=== PATIENT | female | born 1995 | race Two or more races ===

== ENCOUNTER 2019-06-10 13:22 | Emergency (ER) | payer OTHER ==
[2019-06-10 13:33] VITALS: BP 121/54
--- NOTE | 2019-06-10 14:44 | ED Physician Documentation ---
History of Present Illness - Stated complaint Stated Complaint: SINUS PRESSURE/EAR PX - Chief complaint Chief Complaint: Heent - History obtained from History obtained from: Patient - History of Present Illness Timing: Today Pain level max: 8 Pain level now: 5 - Additonal information Additional information: Patient presents to the emergency department with 2 issues, the first is sinus congestion for the past 2 weeks. She states she had a right ear pain this morning as well. Nothing made it better or worse. The second is worms in her stool. She has been seen at the [facility], but not treated. Stool studies were ordered, but they do not yet know the results. No fevers. She is not , breast-feeding or trying to become . Review of Systems Constitutional: denies: Fever, Chills Respiratory: denies: Cough GI: denies: Abdominal Pain, Nausea, Vomiting, Diarrhea : denies: Now EGA Skin: denies: Rash Musculoskeletal: denies: Neck pain, Back pain Neurologic: denies: Focal weakness, Numbness, Headache PD PAST MEDICAL HISTORY - Past Medical History Past Medical History: No - Past Surgical History Past Surgical History: No - Present Medications Home Medications: Ambulatory Orders Medication Instructions Recorded Confirmed Albendazole 400 mg PO ONCE #4 tablet 06/10/19 Amox/Clav 875/125 [Augmentin] 1 each PO Q12H #20 tablet 06/10/19 - Allergies Allergies/Adverse Reactions: Allergies Allergy/AdvReac Type Severity Reaction Status Date / Time No Known Drug Allergies Allergy Verified 06/10/19 13:28 - Living Situation Living Situation: reports: With family Living Arrangement: reports: At home PD ED PE NORMAL - Vitals Vital signs reviewed: Yes - General General: Alert and oriented X 3, No acute distress, Well developed/nourished - HEENT HEENT: PERRL, Moist mucous membranes, Pharynx benign, Other (Right TM is erythematous, swollen, purulent fluid present. Left TM is normal) - Neck Neck: Supple, no meningeal sign - Cardiac Cardiac: RRR, Strong equal pulses - Respiratory Respiratory: No respiratory distress, Clear bilaterally - Abdomen Abdomen: Soft, Non tender, Non distended - Back Back: No CVA TTP - Derm Derm: Warm and dry, No rash - Extremities Extremities: No edema - Neuro Neuro: Alert and oriented X 3 - Psych Psych: Normal mood, Normal affect Results - Vitals Vitals: Vital Signs - 24 hr 06/10/19 13:28 Temperature 37 C Heart Rate 64 Respiratory 16 Rate Blood Pressure 121/54 L O2 Saturation 100 Oxygen O2 Source Room air PD MEDICAL DECISION MAKING - ED course Complexity details: considered differential, d/w patient ED course: Patient appears to have sinusitis with a right acute otitis media. Will place on Augmentin for this. She also appears to have pinworms, pictures were reviewed that were brought with the patient. Will treat with albendazole. Patient counseled regarding signs and symptoms for which I believe and urgent re-evaluation would be necessary. Patient with good understanding of and agreement to plan and is comfortable going home at this time This document was made in part using voice recognition software. While efforts are made to proofread this document, sound alike and grammatical errors may occur. Departure - Departure Disposition: 01 Home, Self Care Clinical Impression: Pinworm disease Otitis media Qualifiers: Otitis media type: unspecified Chronicity: acute Qualified Code(s): H66.90 - Otitis media, unspecified, unspecified ear Sinusitis Qualifiers: Sinusitis location: unspecified location Chronicity: acute Recurrence: non- recurrent Qualified Code(s): J01.90 - Acute sinusitis, unspecified Condition: Good Instructions: ED Enterobiasis, ED Sinusitis Abx Tx Follow-Up: Rhys Sanchez ARNP [Primary Care Provider] - Within 1 week Prescriptions: Albendazole 400 mg PO ONCE #4 tablet Amox/Clav 875/125 [Augmentin] 1 each PO Q12H #20 tablet Comments: Use the medications as prescribed. Return if you worsen. Follow-up with your doctor for further care. You should follow-up with your doctor for results of your stool testing. You should also wash all of your sheets and bedding at home. You should also wash your clothes.
== END 2019-06-10 14:48 | disposition home or self-care (01) ==
LOC: ED 13:22
DX: B80 Enterobiasis (principal); H66.91 Otitis media, unspecified, right ear; J01.90 Acute sinusitis, unspecified
CPT/HCPCS: 99282; 99284

== ENCOUNTER 2019-07-06 09:04 | Emergency (ER) | payer OTHER ==
[2019-07-06 09:13] VITALS: BP 142/61
[2019-07-06 09:31] LABS: RAPID STREP SCREEN POSITIVE (Negative)
[2019-07-06] MEDS ORDERED: KETOROLAC 30 MG/ML VIAL IVP STA (09:43)
[2019-07-06] MEDS ORDERED: DEXAMETHASONE 10 MG/ML VIAL IVP STA (09:43)
[2019-07-06] MEDS ORDERED: SODIUM CHLORIDE 0.9% 1,000 ML IV ONE (09:43)
--- NOTE | 2019-07-06 09:45 | ED Physician Documentation ---
PD HPI HEENT - Stated complaint Stated Complaint: COUGH/VOMITING BLOOD,COUGH - Chief complaint Chief Complaint: Heent - History obtained from History obtained from: Patient, Family - History of Present Illness Timing - onset: How many weeks ago (1) Timing - duration: Weeks (1) Timing - details: Gradual onset, Still present Location: Throat Improves: Medication Worsens: Swalllowing Associated symptoms: Fever, Congestion, Unable to swallow, Cough, Other (vomiting) Similar symptoms before: Diagnosis (strep) Recently seen: Emergency Dept - Additional information Additional information: 24-year-old female with a history of recurrent strep pharyngitis is developed a sore throat over the past week. She has had symptoms off and on and has had a low-grade fever as well as difficulty swallowing since last night she has been vomiting as well. She feels like she is choking on phlegm. She has had issues with sore throat and strep since high school with recurrent infections each year. She was most recently treated here in the emergency department for otitis about 3 weeks ago. Review of Systems Constitutional: reports: Fever, Chills, Myalgias, Fatigue Eyes: denies: Decreased vision Ears: reports: Ear pain Nose: reports: Rhinorrhea / runny nose, Congestion Throat: reports: Sore throat Cardiac: denies: Chest pain / pressure, Palpitations Respiratory: reports: Cough. denies: Dyspnea GI: reports: Nausea, Vomiting. denies: Abdominal Pain PD PAST MEDICAL HISTORY - Past Medical History Past Medical History: No - Past Surgical History Past Surgical History: No - Present Medications Home Medications: Ambulatory Orders Medication Instructions Recorded Confirmed Albendazole 400 mg PO ONCE #4 tablet 06/10/19 Amox/Clav 875/125 [Augmentin] 1 each PO Q12H #20 tablet 06/10/19 Amoxicillin 875 mg PO BID #20 tablet 07/06/19 - Allergies Allergies/Adverse Reactions: Allergies Allergy/AdvReac Type Severity Reaction Status Date / Time No Known Drug Allergies Allergy Verified 07/06/19 09:08 - Social History Does the pt smoke?: No Smoking Status: Never smoker PD ED PE NORMAL - Vitals Vital signs reviewed: Yes (Tachycardic and hypertensive mildWith wide pulse pressure.) - General General: Alert and oriented X 3, Well developed/nourished, Other (Expression of pain with communications program manager tone and flattened affect.) - HEENT HEENT: Atraumatic, PERRL, EOMI, Other (Left TM is erythematous with rounding of landmarks the pharynx is with 2+ exudative cryptic tonsils with some angry looking tissue present as well.) - Neck Neck: Supple, no meningeal sign, No bony TTP, Other (Shotty adenopathy bilaterally) - Cardiac Cardiac: RRR, No murmur - Respiratory Respiratory: No respiratory distress, Clear bilaterally - Abdomen Abdomen: Soft, Non tender - Derm Derm: Normal color, Warm and dry, No rash - Extremities Extremities: No deformity, No edema, No calf tenderness / cord - Neuro Neuro: Alert and oriented X 3, retail advisor 2-12 intact, No motor deficit, No sensory deficit, Normal speech Eye Opening: Spontaneous Motor: Obeys Commands Verbal: Oriented GCS Score: 15 - Psych Psych: Normal mood Results - Vitals Vitals: Vital Signs - 24 hr 07/06/19 09:08 Temperature 36.8 C Heart Rate 104 H Respiratory 16 Rate Blood Pressure 142/61 H O2 Saturation 100 Oxygen O2 Source Room air - Labs Labs: Laboratory Tests 07/06/19 07/06/19 07/06/19 09:12 09:50 09:50 WBC 18.2 H RBC 4.42 Hgb 13.1 Hct 40.7 MCV 92.1 MCH 29.6 MCHC 32.2 RDW 13.0 Plt Count 303 MPV 10.8 Neut # (Auto) 14.9 H Lymph # (Auto) 1.6 [place] # (Auto) 1.3 H Eos # (Auto) 0.1 Baso # (Auto) 0.1 Absolute Nucleated RBC 0.00 Nucleated RBC % 0.0 Sodium 137 Potassium 3.7 Chloride 103 Carbon Dioxide 25 Anion Gap 9.0 BUN 14 Creatinine 0.6 Estimated GFR (MDRD) 123 Glucose 99 Calcium 8.6 Total Bilirubin 0.7 AST 21 ALT 16 Alkaline Phosphatase 48 Total Protein 7.4 Albumin 4.0 Globulin 3.4 Albumin/Globulin Ratio 1.2 Lipase 26 Group A Strep Rapid POSITIVE H PD MEDICAL DECISION MAKING - ED course Complexity details: reviewed results, re-evaluated patient, considered differential, d/w patient, d/w family ED course: 24-year-old female with recurrent strep pharyngitis has strep pharyngitis today as well as otitis she has been vomiting and she has not been able to swallow well for the past week. She is dehydrated and administered intravenous saline as well as Toradol and dexamethasone. Will place her on some amoxicillin and I have recommended the patient she see the folks at [facility] to consider tonsillectomy. Patient feels much improved with treatment. Departure - Departure Disposition: 01 Home, Self Care Clinical Impression: Strep pharyngitis Otitis media Qualifiers: Otitis media type: suppurative Chronicity: acute Laterality: left Recurrence: recurrent Spontaneous tympanic membrane rupture: without spontaneous rupture Qualified Code(s): H66.005 - Acute suppurative otitis media without spontaneous rupture of ear drum, recurrent, left ear Condition: Stable Instructions: ED Otitis Media Acute Adult, ED Strep Pharyngitis Conf Follow-Up: Rhys Sanchez ARNP [Primary Care Provider] - [facility] [Provider Group] Prescriptions: Amoxicillin 875 mg PO BID #20 tablet
[2019-07-06 10:22] LABS: BASOPHILS # (AUTO) 0.1 10^3/uL (0.0-0.1); BASOPHILS % (AUTO) 0.4 %; EOSINOPHILS # (AUTO) 0.1 10^3/uL (0.0-0.7); EOSINOPHILS % (AUTO) 0.8 %; HGB - HEMOGLOBIN 13.1 g/dL (12.0-16.0); LYMPHOCYTES # (AUTO) 1.6 10^3/uL (1.5-3.5); MEAN CORPUSCULAR HEMOGLOBIN 29.6 pg (27.0-31.0); MEAN CORPUSCULAR HGB CONC 32.2 g/dL (32.0-36.0); MEAN CORPUSCULAR VOLUME 92.1 fL (81.0-99.0); MEAN PLATELET VOLUME 10.8 fL (7.9-10.8); MONOCYTES # (AUTO) 1.3 10^3/uL (0.0-1.0); MONOCYTES % (AUTO) 6.9 %; NEUTROPHILS # (AUTO) 14.9 10^3/uL (1.5-6.6); NEUTROPHILS % (AUTO) 82.1 %; PLT - PLATELET COUNT 303 10^3/uL (130-450); RED BLOOD COUNT 4.42 10^6/uL (4.20-5.40); WHITE BLOOD COUNT 18.2 x10^3/uL (4.8-10.8)
[2019-07-06 10:37] LABS: ALBUMIN/GLOBULIN RATIO 1.2 (1.0-2.2); BILIRUBIN,TOTAL 0.7 mg/dL (0.2-1.0); CALCIUM 8.6 mg/dL (8.5-10.3); CREATININE 0.6 mg/dL (0.4-1.0); TOTAL PROTEIN 7.4 g/dL (6.7-8.2)
== END 2019-07-06 11:01 | disposition home or self-care (01) ==
LOC: ED 09:04
DX: J02.0 Streptococcal pharyngitis (principal); H66.005 Acute suppurative otitis media without spontaneous rupture of ear drum, recurrent, left ear
CPT/HCPCS: 36415; 80053; 83690; 85025; 87430; 96361; 96374; 99284